=== PATIENT | male | born 1940 | race Caucasian/White ===

== ENCOUNTER → 2017-02-15 | Outpatient (CLI) | payer MEDICARE, OTHER | LOC: RAD 16:17 | PROVIDERS: ATTEND Internal Medicine | DX: C34.32 Malignant neoplasm of lower lobe, left bronchus or lung (principal) | CPT/HCPCS: 78815; A9552 ==

== ENCOUNTER → 2017-05-24 | Outpatient (CLI) | payer MEDICARE, OTHER ==
--- NOTE | 2017-05-24 09:48 | RADIOLOGY REPORT (SQ) ---
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 Images reviewed with lung, soft tissue and bone windows. Reconstructed coronal and sagittal MPR images reviewed. All images st ored on PACS. All CT scanners at this facility use dose modulation, iterative reconstruction, and/or weight based d osing when appropriate to reduce radiation dose to as low as reasonably achievable (ALARA). [facility]: Dose Right [facility]: CareDose [facility]: Dose Right [facility]: Teradose 4D [facility]: [employer] RADIATION DOSE: Up-to-date CT equipment and radiation dose reduction techniques were employed. CTDIv ol: 3.4 mGy. DLP: 147 mGy-cm. mGy. LIMITATIONS: No technical limitations. FINDINGS: LUNGS AND PLEURA: Scarring in the left upper lobe with adjacent radiotherapy markers now m easures 3 x 1.3 cm in size (was 4 x 2 cm in size on 02/15/2017). Stable left lower lobectomy postsurgical change. Stable ramon in the posterior left apex from prio r wedge resection Right lung is hyperinflated and hyperlucent without focal findings. No pleural effusions or pneumothorax HILAR AND MEDIASTINAL STRUCTURES: No identified masses or abnormal nodes. No obvious aneurysm. HEART AND VASCULAR STRUCTURES: No aneurysm. No pericardial effusion. Heavy coronary artery calcific ations. Stable mild ectasia thoracic aorta. UPPER ABDOMEN: No significant findings. Limited exam. THYROID AND OTHER SOFT TISSUES: No masses. No adenopathy. BONES: No significant finding. HARDWARE: None in the chest. OTHER: No other significant findings. IMPRESSION: Decrease in size of left upper lobe scarring compared to previous studies TECHNICAL DOCUMENTATION: JOB ID: [id number] Quality ID # [id number]: Final reports with documentation of one or more dose reduction techniques (e.g., Au tomated exposure control, adjustment of the mA and/or kV according to patient size, use of iterative reconstruction technique) 2010 [employer]- All Rights Reserved
== END ==
LOC: RAD 08:13
PROVIDERS: ATTEND Internal Medicine
DX: C34.32 Malignant neoplasm of lower lobe, left bronchus or lung (principal)
CPT/HCPCS: 71250

== ENCOUNTER → 2017-10-29 | Outpatient (CLI) | payer MEDICARE, OTHER ==
--- NOTE | 2017-10-29 09:31 | RADIOLOGY REPORT (SQ) ---
EXAM DESCRIPTION: CT CHEST WITHOUT COMPLETED DATE/TIME: 10/29/2017 8:20 am REASON FOR STUDY: C34.32 MALIGNANT NEOPLASM OF LOWER LOBE, LEFT BRONCHUS OR LUNG C34.32 MALIGNANT N EOPLASM OF LOWER LOBE, LEFT BRONCHUS OR LUDY COMPARISON: PET-CT 07/31/2015, 11/04/2016, 02/15/2017 CT chest 11/30/2015, 05/09/2016, 05/24/2017 TECHNIQUE: CT scan performed of the chest without intravenous contrast. Images reviewed with lung, soft tissue and bone windows. Reconstructed coronal and sagittal MPR images reviewed. All images st ored on PACS. All CT scanners at this facility use dose modulation, iterative reconstruction, and/or weight based d osing when appropriate to reduce radiation dose to as low as reasonably achievable (ALARA). [facility]: Dose Right [facility]: CareDose [facility]: Dose Right [facility]: Teradose 4D [facility]: [employer] RADIATION DOSE: CT Rad equipment meets quality standard of care and radiation dose reduction techniq ues were employed. CTDIvol: 3.2 mGy. DLP: 137 mGy-cm. mGy. LIMITATIONS: No technical limitations. FINDINGS: LUNGS AND PLEURA: A left upper lobe spiculated scar is present with surrounding radiothera py markers, 2.7 x 1.2 cm in size (was 2.9 x 1.3 cm on 05/24/2017, 4.0 x 1.7 cm on 02/15/2017). Patient is post old left lower lobectomy with volume loss. There is loculated pleural thickening and pleural fluid in the left posterior costophrenic sulcus 10 x 5 cm in size unchanged from studies taya ing back to 2014. Right lung is hyperinflated but clear. No worrisome nodules. No right pleural effusion. No pneumothorax HILAR AND MEDIASTINAL STRUCTURES: No identified masses or abnormal nodes. No obvious aneurysm. HEART AND VASCULAR STRUCTURES: No aneurysm. No pericardial effusion. UPPER ABDOMEN: No significant findings. Limited exam. THYROID AND OTHER SOFT TISSUES: No masses. No adenopathy. BONES: No significant finding. HARDWARE: Surgical ramon post left lower lobectomy, left radiotherapy treatment markers upper lobe OTHER: No other significant findings. IMPRESSION: Decrease in size of left upper lobe scarring compared to previous studies TECHNICAL DOCUMENTATION: JOB ID: [id number] Quality ID # [id number]: Final reports with documentation of one or more dose reduction techniques (e.g., Au tomated exposure control, adjustment of the mA and/or kV according to patient size, use of iterative reconstruction technique) 2010 [employer]- All Rights Reserved
== END ==
LOC: RAD 08:04
PROVIDERS: ATTEND Internal Medicine
DX: C34.32 Malignant neoplasm of lower lobe, left bronchus or lung (principal)
CPT/HCPCS: 71250

== ENCOUNTER → 2018-01-13 | Outpatient (CLI) | payer MEDICARE, OTHER ==
--- NOTE | 2018-01-13 12:11 | RADIOLOGY REPORT (SQ) ---
EXAM DESCRIPTION: SARAH SWALLOW COMPLETED DATE/TIME: 01/13/2018 11:28 am REASON FOR STUDY: NEW ONSET DYSPHAGIA, UNSPECIFIED R 13.10, FOOD IN PHARYNX CAUSING OTHER INJURY, SE REDDING T17.228 S COMPARISON: None. TECHNIQUE: Videofluoroscopic swallowing examination was performed in conjunction with speech patholo gy. Videofluoroscopic imaging was obtained and reviewed and these are the findings: RADIATION DOSE: Total fluoroscopy time: 2.5 minutes 2 fluoroscopy images saved to PACS. LIMITATIONS: None FINDINGS: The patient was brought into the fluoro room and placed upright on a modified barium swall ow chair. The patient was then given multiple consistencies mixed with barium to swallow under live fluoroscopic video guidance. According to the Speech Pathologist there was flash laryngeal penetrati on with thin liquids. No other penetration and no tracheal aspiration was observed. Normal oral and pharyngeal transit time noted. No significant post swallow residual seen. Please see speech pathol ogy report for further details and recommendations. IMPRESSION: FLASH LARYNGEAL PENETRATION WITH THIN LIQUIDS. NO TRACHEAL ASPIRATION.PLEASE SEE SPEECH PATHOLOGIST REPORT FOR OTHER FINDINGS AND RECOMMENDATIONS. COMMENT: Quality ID [id number]: Final reports for procedures using fluoroscopy that document radiation exp osure indices, or exposure time and number of fluorographic images (if radiation exposure indices are not available) TECHNICAL DOCUMENTATION: JOB ID: [id number] [employer]- All Rights Reserved
--- NOTE | 2018-01-13 14:31 | ST Modified Barium Swallow ---
Recommendation - Recommendations Recommendations: Recommend reduced rate of intake, especially for liquids. Medical Diagnoses - Medical Diagnoses Medical Diagnosis Description & ICD-10 Code(s): dysphagia R13.10 Other Medical Diagnoses/Co-Morbidities: Patient reports reflux, unable to obtain full medical history ST Modified Barium Swallow - General Date: 01/13/18 Referring Physician: Dr. Pantera Kelly Reason for Referral: new onset dysphagia - History History obtained from: Patient -: Medical - Patient was transfered from [facility] [place] for procedure. He reports needing to go to the hospital recently due to feeling "knocked down". States that recently he feels that heavier foods can't be swallowed. Specifically states that things with "no taste don't want to go down ". The patient personally reports no recent pneumonia, but he states that he had a recent x-ray which showed "something in the bottom of my left lung". Medications: Patient states he takes something for reflux, unable to give full medication list. Allergies: Patient reports no allergies - Functional Status Prior Functional Status: INDEPENDENT: feeding - independent Current Functional Limitations: feeding - intermittent difficulty. - Subjective Patient/caregiver goal(s): r/o aspiration Cognitive-Linguistic Function: WNL Speech Intelligibility: WNL Current Nutritional Means: PO Current PO diet: Regular - per patient report Current symptoms: other - difficulty initiating swallow with specific foods Pain: Patient reports, 0/5 - Objective Assessment: Upright, Left Lateral - Food Trials Used Food trials used: Thin liquids, Pureed, Soft solids, Regular The patient: Was Able to Self Feed - Oral-Motor Skills Laryngeal Function: Volitional Cough - wfl, Volitional Swallow - wfl - Assessment Oral prep: Normal Labial closure: Adequate Leakage: None Mastication: Adequate Lingual Movement: Normal Oral stage: Normal for this Procedure - Pharyngeal Stage Initiation of Pharyngeal Stage Reflex: Normal Decreased laryngeal elevation: No Reduced Velopharyngeal Closure: no Reduced pressure generation: No reduced tongue-based retraction: No Pre-swallow pooling in valleculae: Mild Pre-Swallow pooling in pyriforms: None Reduced Thyro-Hyoid approximation: Yes - mild Reduced epiglottic excursion: No Reduced pharyngeal peristalsis/contraction: No Multiple Swallows with: Cleared w/ Liquid Assist Post-swallow residulas vallecular: Mild Post-Swallow residuals in pyriforms: Mild Reduced Cricopharyngeal opening: No Pharyngeal Stage Comments: Functional overall swallow seen for all textures. No difficulty with swallow initiation. Mild residue seen after solids in valleculae and pyriform sinus, this cleared easily with liquid wash. - Fall Risk Assessment Medications/Conditions that increase fall risks include: Antidepressants, sedatives, anti-arrhythmic, diuretic, benzodiazipenes, neuroleptics. BP regulation problems, cardiac problems, balance or gait deficits, neurological problems. Fall Risk Actions Taken: No action needed - Behavioral Observations During evaluation process patient: was pleasant, was cooperative, able to answer questions - Treatment / Educational Needs: Treatment/Education Needs: Treatment consisted of patient education on the role of the Speech Pathologist. Patient's plan of care and golas were communicated as well as scheduling and attendance policies. Recommendations for initial home program were shared. Patient demonstrated understanding and verbalized agreement. - Impression/Summary Laryngeal Penetration: Yes, Flash, during swallow Consistency: Thin Tracheal Aspiration: no Patient presents with: Normal swallow at eval - within functional limits for normal diet Risk of Aspiration: Minimal Risk of nutritional compromise: None Evaluation and Findings: No diet modifications indicated based on this study. Functional oral and pharyngeal phase swallow seen for all textures. Modifications to diet may be made based on patient's personal preference and comfort level. Low risk of aspiration seen. - Recommendations Solid diet recommendations: Regular - may be adjusted to patient's comfort level Liquid Diet Modification: Thin Strict aspiration precautions: Yes Dysphagia therapy with COMMUNITY DIETITIAN: no Recommended techniques: Fully Upright During Meal, Small Bites and Sips, Alternate Bites/Sips Information, Precautions and Recommendations: Patient (Written), Patient (Verbal ) - Time Total Time: 20 - Plan of Care Patient to follow-up with referring physician: Yes Strategies to optimize patient understanding include:: ongoing assessment of educational needs, implementation of educational strategies, and re-education. - - -: Thank you for the opportunity to work with this patient and his/her family. Should you have any questions about this patient's plan or progress, I can be reached at [phone]. Charge G Code? - - -: Yes ST F.L. Impairment Category - Rationale Based On Rationale Based On: Func. Asses. Tool Results - Swallowing Current G8996: CI 1-19% Impaired Goal G8997: CI 1-19% Impaired Discharge G8998: CI 1-19% Impaired
== END ==
LOC: RAD 10:43
PROVIDERS: ATTEND Emergency Medicine
DX: R13.10 Dysphagia, unspecified (principal)
CPT/HCPCS: 74230; 92611; G8996; G8997; G8998

== ENCOUNTER → 2018-04-29 | Outpatient (CLI) | payer MEDICARE, OTHER ==
--- NOTE | 2018-04-29 10:07 | RADIOLOGY REPORT (SQ) ---
EXAM DESCRIPTION: CT CHEST WITHOUT COMPLETED DATE/TIME: 04/29/2018 8:25 am REASON FOR STUDY: LUNG CANCER C34.32 MALIGNANT NEOPLASM OF LOWER LOBE, LEFT BRONCHUS OR LUDY COMPARISON: 10/29/2017 TECHNIQUE: CT scan performed of the chest without intravenous contrast. Images reviewed with lung, soft tissue and bone windows. Reconstructed coronal and sagittal MPR images reviewed. All images st ored on PACS. All CT scanners at this facility use dose modulation, iterative reconstruction, and/or weight based d osing when appropriate to reduce radiation dose to as low as reasonably achievable (ALARA). [facility]: Dose Right [facility]: CareDose [facility]: Dose Right [facility]: Teradose 4D [facility]: [employer] RADIATION DOSE: CT Rad equipment meets quality standard of care and radiation dose reduction techniq ues were employed. CTDIvol: 3.4 mGy. DLP: 150 mGy-cm. mGy. LIMITATIONS: No technical limitations. FINDINGS: LUNGS AND PLEURA: Status post left lower lobectomy. Stable left lower lobe pleural thicke ulises 5.1 x 10.4 cm. Stable spiculated density left upper lobe 1.1 x 2.8 cm. No new nodules. HILAR AND MEDIASTINAL STRUCTURES: No identified masses or abnormal nodes. No obvious aneurysm. HEART AND VASCULAR STRUCTURES: No aneurysm. No pericardial effusion. UPPER ABDOMEN: No significant findings. Limited exam. THYROID AND OTHER SOFT TISSUES: No masses. No adenopathy. BONES: New L1 compression fracture approximately 70% height loss. No significant retropulsion. HARDWARE: None in the chest. OTHER: No other significant findings. IMPRESSION: 1. Old left lower lobectomy and radiation with stable scarring in the left base and left apex. 2. Osteoporotic compression fracture L1 which was not present on the prior. No significant retropuls ion. TECHNICAL DOCUMENTATION: JOB ID: [id number] Quality ID # [id number]: Final reports with documentation of one or more dose reduction techniques (e.g., Au tomated exposure control, adjustment of the mA and/or kV according to patient size, use of iterative reconstruction technique) 2010 [employer]- All Rights Reserved Reading location - IP/workstation name: [facility]ICINE [email or web address]
== END ==
LOC: RAD 08:10
PROVIDERS: ATTEND Internal Medicine
DX: C34.32 Malignant neoplasm of lower lobe, left bronchus or lung (principal)
CPT/HCPCS: 71250

== ENCOUNTER → 2018-11-03 | Outpatient (CLI) | payer MEDICARE, OTHER ==
--- NOTE | 2018-11-03 09:45 | RADIOLOGY REPORT (SQ) ---
EXAM DESCRIPTION: CT CHEST WITHOUT COMPLETED DATE/TIME: 11/03/2018 9:10 am REASON FOR STUDY: LUNG CANCER C34.32 MALIGNANT NEOPLASM OF LOWER LOBE, LEFT BRONCHUS OR LUDY COMPARISON: PET-CT 11/04/2016, 02/15/2017 CT chest 05/09/2016, 05/24/2017, 10/29/2017, 04/29/2018 TECHNIQUE: CT scan performed of the chest without intravenous contrast. Images reviewed with lung, soft tissue and bone windows. Reconstructed coronal and sagittal MPR images reviewed. All images st ored on PACS. All CT scanners at this facility use dose modulation, iterative reconstruction, and/or weight based d osing when appropriate to reduce radiation dose to as low as reasonably achievable (ALARA). [facility]: Dose Right [facility]: CareDose [facility]: Dose Right [facility]: Teradose 4D [facility]: [employer] RADIATION DOSE: CT Rad equipment meets quality standard of care and radiation dose reduction techniq ues were employed. CTDIvol: 3.4 mGy. DLP: 148 mGy-cm. mGy. LIMITATIONS: No technical limitations. FINDINGS: LUNGS AND PLEURA: 2.7 x 0.9 cm scar is present at the left lung apex surrounded by radioth erapy treatment markers (was 2.8 x 1.2 cm on 04/29/2018 and 10/29/2017). Patient has had a left apical wedge resection of the with a row of ramon. There is also post left lower lobe lobectomy change, with clips at the left lower hilum and a stable post lobectomy loculated left lower pleural effusion, stable in size measuring about 9 by 5 cm in size. Right lung is hyperinflated and hyperlucent. No other worrisome pulmonary nodules. No new pleural e ffusion. No pneumothorax. No acute infiltrates. HILAR AND MEDIASTINAL STRUCTURES: Stable 1.3 x 0.7 cm precarinal lymph node unchanged from PET-CT 01/30. HEART AND VASCULAR STRUCTURES: Heavily calcified [place] coronary arteries. Ascending thoracic aorta 3.5 cm in greatest diameter, similar compared to previous studies. No pericardial effusion UPPER ABDOMEN: Benign hepatic cysts. Limited exam. THYROID AND OTHER SOFT TISSUES: No masses. No adenopathy. BONES: Stable 50% compression deformity at L1 HARDWARE: None in the chest. OTHER: No other significant findings. IMPRESSION: Stable left upper lobe parenchymal scarring with radiotherapy treatment markers. No pro gression of disease. TECHNICAL DOCUMENTATION: JOB ID: [id number] Quality ID # [id number]: Final reports with documentation of one or more dose reduction techniques (e.g., Au tomated exposure control, adjustment of the mA and/or kV according to patient size, use of iterative reconstruction technique) 2010 [employer]- All Rights Reserved Reading location - IP/workstation name: [email or web address]
== END ==
LOC: RAD 08:44
PROVIDERS: ATTEND Internal Medicine
DX: C34.32 Malignant neoplasm of lower lobe, left bronchus or lung (principal)
CPT/HCPCS: 71250

== ENCOUNTER → 2019-05-08 | Outpatient (CLI) | payer MEDICARE, OTHER ==
--- NOTE | 2019-05-08 09:52 | RADIOLOGY REPORT (SQ) ---
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 TECHNIQUE: CT scan performed of the chest without intravenous contrast. Images reviewed with lung, soft tissue and bone windows. Reconstructed coronal and sagittal MPR images reviewed. All images st ored on PACS. All CT scanners at this facility use dose modulation, iterative reconstruction, and/or weight based d osing when appropriate to reduce radiation dose to as low as reasonably achievable (ALARA). [facility]: Dose Right [facility]: CareDose [facility]: Dose Right [facility]: Teradose 4D [facility]: [employer] RADIATION DOSE: CT Rad equipment meets quality standard of care and radiation dose reduction techniq ues were employed. CTDIvol: 3.2 mGy. DLP: 141 mGy-cm. mGy. LIMITATIONS: No technical limitations. FINDINGS: LUNGS AND PLEURA: Stable surgical changes in the left lung with volume loss. Stable spicu lated mass in the left upper lobe with radiotherapy markers. Current measurement 0.9 x 2.7 cm with p rior measurement 0.9 x 2.7 cm. Stable chronic complex loculated fluid collection in the lower left c hest. The right lung is clear. No new nodules or masses. HILAR AND MEDIASTINAL STRUCTURES: No identified masses or abnormal nodes. No obvious aneurysm. HEART AND VASCULAR STRUCTURES: No aneurysm. No pericardial effusion. UPPER ABDOMEN: No significant findings. Limited exam. THYROID AND OTHER SOFT TISSUES: No masses. No adenopathy. BONES: No significant finding. HARDWARE: None in the chest. OTHER: No other significant findings. IMPRESSION: STABLE APPEARANCE OF THE CHEST. SURGICAL CHANGES IN THE LEFT LUNG WITH STABLE SPICULATE D MASS IN THE LEFT UPPER LOBE AND STABLE CHRONIC COMPLEX LOCULATED FLUID COLLECTION IN THE LOWER LEFT CHEST. NO PROGRESSION AND NO NEW FINDINGS. TECHNICAL DOCUMENTATION: JOB ID: [id number] Quality ID # [id number]: Final reports with documentation of one or more dose reduction techniques (e.g., Au tomated exposure control, adjustment of the mA and/or kV according to patient size, use of iterative reconstruction technique) 2010 [email or web address]- All Rights Reserved Reading location - IP/workstation name: [email or web address]
== END ==
LOC: RAD 07:46
PROVIDERS: ATTEND Internal Medicine
DX: C34.32 Malignant neoplasm of lower lobe, left bronchus or lung (principal)
CPT/HCPCS: 71250

== ENCOUNTER → 2019-11-09 | Outpatient (CLI) | payer MEDICARE, OTHER ==
--- NOTE | 2019-11-09 10:35 | RADIOLOGY REPORT (SQ) ---
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 Images reviewed with lung, soft tissue and bone windows. Reconstructed coronal and sagittal MPR images reviewed. All images st ored on PACS. All CT scanners at this facility use dose modulation, iterative reconstruction, and/or weight based d osing when appropriate to reduce radiation dose to as low as reasonably achievable (ALARA). [facility]: Dose Right [facility]: CareDose [facility]: Dose Right [facility]: Teradose 4D [facility]: [employer] RADIATION DOSE: CT Rad equipment meets quality standard of care and radiation dose reduction techniq ues were employed. CTDIvol: 3.6 mGy. DLP: 168 mGy-cm. mGy. LIMITATIONS: No technical limitations. FINDINGS: LUNGS AND PLEURA: Stable pleural changes status post left lower lobectomy. Partially calc ified spiculated nodule left upper lobe is unchanged. There is new diffuse airspace disease in the i nferior left upper lobe with associated basilar bronchiectasis and honeycombing. HILAR AND MEDIASTINAL STRUCTURES: No identified masses or abnormal nodes. No obvious aneurysm. HEART AND VASCULAR STRUCTURES: No aneurysm. No pericardial effusion. UPPER ABDOMEN: No significant findings. Limited exam. THYROID AND OTHER SOFT TISSUES: No masses. No adenopathy. BONES: No acute findings. HARDWARE: None in the chest. OTHER: No other significant findings. IMPRESSION: Stable spiculated partially calcified nodule left upper lobe. Interval development of a irspace disease and fibrosis consistent with radiation therapy. TECHNICAL DOCUMENTATION: JOB ID: [id number] Quality ID # [id number]: Final reports with documentation of one or more dose reduction techniques (e.g., Au tomated exposure control, adjustment of the mA and/or kV according to patient size, use of iterative reconstruction technique) 2010 [employer]- All Rights Reserved Reading location - IP/workstation name: [email or web address]
== END ==
LOC: RAD 08:05
PROVIDERS: ATTEND Internal Medicine
DX: C34.32 Malignant neoplasm of lower lobe, left bronchus or lung (principal); J70.1 Chronic and other pulmonary manifestations due to radiation
CPT/HCPCS: 71250

== ENCOUNTER → 2020-05-16 | Outpatient (CLI) | payer MEDICARE, OTHER ==
--- NOTE | 2020-05-16 12:10 | RADIOLOGY REPORT (SQ) ---
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 11/03/2018. TECHNIQUE: CT scan performed of the chest without intravenous contrast. Images reviewed with lung, soft tissue and bone windows. Reconstructed coronal and sagittal MPR images reviewed. All images st ored on PACS. All CT scanners at this facility use dose modulation, iterative reconstruction, and/or weight based d osing when appropriate to reduce radiation dose to as low as reasonably achievable (ALARA). [facility]: Dose Right [facility]: CareDose [facility]: Dose Right [facility]: Teradose 4D [facility]: [employer] RADIATION DOSE: CT Rad equipment meets quality standard of care and radiation dose reduction techniq ues were employed. CTDIvol: 5.6 mGy. DLP: 236 mGy-cm. mGy. LIMITATIONS: No technical limitations. FINDINGS: LUNGS AND PLEURA: Nodular scarring with associated surgical clips in the left apex. Diffu se left basilar mixed interstitial and airspace infiltrates have essentially resolved. Chronic soft tissue density pleural complex lesion in the left base inferiorly. This is unchanged and measures cl ose to 11 cm in maximal transverse dimension. Right lung is slightly hyperinflated but otherwise rel atively clear. HILAR AND MEDIASTINAL STRUCTURES: No identified masses or abnormal nodes. No obvious aneurysm. HEART AND VASCULAR STRUCTURES: Heavy coronary calcification. No pericardial effusion or focal aortic aneurysm. UPPER ABDOMEN: Mildly nodular heterogeneous liver, chronic. THYROID AND OTHER SOFT TISSUES: No masses. No adenopathy. BONES: Chronic L1 compression fracture, unchanged. HARDWARE: None in the chest. OTHER: No other significant findings. IMPRESSION: 1. Essentially resolved left lung infiltrates. 2. Nodular scar in the left apex, unchanged. 3. Postoperative changes left chest with a soft tissue chronic appearing pleural collection which is nonprogressive over time. TECHNICAL DOCUMENTATION: JOB ID: [id number] Quality ID # [id number]: Final reports with documentation of one or more dose reduction techniques (e.g., Au tomated exposure control, adjustment of the mA and/or kV according to patient size, use of iterative reconstruction technique) 2010 [employer]- All Rights Reserved Reading location - IP/workstation name: [email or web address]
== END ==
LOC: RAD 08:39
PROVIDERS: ATTEND Physician Assistant Medical
DX: C34.32 Malignant neoplasm of lower lobe, left bronchus or lung (principal)
CPT/HCPCS: 71250

== ENCOUNTER → 2020-11-17 | Outpatient (CLI) | payer MEDICARE, OTHER ==
--- NOTE | 2020-11-17 12:20 | RADIOLOGY REPORT (SQ) ---
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 Images reviewed with lung, soft tissue and bone windows. Reconstructed coronal and sagittal MPR images reviewed. All images st ored on PACS. All CT scanners at this facility use dose modulation, iterative reconstruction, and/or weight based d osing when appropriate to reduce radiation dose to as low as reasonably achievable (ALARA). [facility]: Dose Right [facility]: CareDose [facility]: Dose Right [facility]: Teradose 4D [facility]: [employer] RADIATION DOSE: CT Rad equipment meets quality standard of care and radiation dose reduction techniq ues were employed. CTDIvol: 3.3 mGy. DLP: 142 mGy-cm. mGy. LIMITATIONS: No technical limitations. FINDINGS: LUNGS AND PLEURA: Old left lower lobectomy. Old wedge resection with stable scar adjacent to fiduciary markers left upper lobe. Stable chronic pleural fluid collection left base. HILAR AND MEDIASTINAL STRUCTURES: No identified masses or abnormal nodes. No obvious aneurysm. HEART AND VASCULAR STRUCTURES: No aneurysm. No pericardial effusion. UPPER ABDOMEN: 3 cm aortic aneurysm, stable. THYROID AND OTHER SOFT TISSUES: No masses. No adenopathy. BONES: No significant finding. HARDWARE: None in the chest. OTHER: No other significant findings. IMPRESSION: Stable post treatment changes in the left lung. TECHNICAL DOCUMENTATION: JOB ID: [id number] Quality ID # [id number]: Final reports with documentation of one or more dose reduction techniques (e.g., Au tomated exposure control, adjustment of the mA and/or kV according to patient size, use of iterative reconstruction technique) 2010 [employer]- All Rights Reserved Reading location - IP/workstation name: [email or web address]
== END ==
LOC: RAD 08:06
PROVIDERS: ATTEND Physician Assistant Medical
DX: C34.32 Malignant neoplasm of lower lobe, left bronchus or lung (principal)
CPT/HCPCS: 71250